=== PATIENT | female | born 1980 | race Caucasian/White ===

== ENCOUNTER 2018-12-11 18:00 | Inpatient (IN) | payer MEDICAID ==
[2018-12-11] MEDS: LACTATED RINGER'S 1,000 ML IV (18:55)
[2018-12-11] MEDS ORDERED: MISOPROSTOL 200 MCG TAB PR (19:00)
[2018-12-11] MEDS ORDERED: LIDOCAINE 1% (MPF) 30 ML INJ INJ (19:00)
[2018-12-11] MEDS ORDERED: CARBOPROST 250 MCG INJ IM (19:00)
[2018-12-11] MEDS ORDERED: OXYCODONE/ASPIRIN (4.88/325) TAB PO (19:00)
[2018-12-11] MEDS ORDERED: OXYTOCIN 30 UNITS/LR 500 ML IV ×2 (19:00)
[2018-12-11] MEDS ORDERED: METHYLERGONOVINE 0.2 MG INJ IM (19:00)
[2018-12-11] MEDS ORDERED: BUTORPHANOL 2 MG INJ IV (19:00)
[2018-12-11 19:20] LABS: ADD MAN DIFF? NO
[2018-12-11 19:23] LABS: WHITE BLOOD COUNT 11.5 10^3/ul (4.8-10.8)
[2018-12-11 19:23] LABS: BASOPHILS % 0.3 % (0.0-2.0); EOSINOPHILS # 0.1 10^3/ul (0.0-0.5); EOSINOPHILS % 0.8 % (0.0-7.0); HEMATOCRIT 35.8 % (37.0-47.0); HEMOGLOBIN 12.2 g/dl (12.0-16.0); LYMPHOCYTES % 17.5 % (15.0-51.0); MEAN CORPUSCULAR HEMOGLOBIN 30.9 pg (29.0-33.0); MEAN CORPUSCULAR HGB CONC 34.1 g/dl (32.0-37.0); MEAN CORPUSCULAR VOLUME 90.6 fl (82.0-101.0); MEAN PLATELET VOLUME 9.3 fl (7.4-10.4); MONOCYTE # 1.2 10^3/ul (0.3-0.9); MONOCYTES % 10.7 % (0.0-11.0); NEUTROPHILS % 69.2 % (39.0-77.0); PLATELET COUNT 211 10^3/UL (140-415); RED BLOOD COUNT 3.95 10^6/ul (4.20-5.40); RED CELL DISTRIBUTION WIDTH 12.9 % (11.5-14.5)
[2018-12-11] MEDS ORDERED: MINERAL OIL LIGHT 10 ML VIAL TOP (19:30)
[2018-12-11 19:43] LABS: INR 0.96; PROTIME 12.9 Sec (11.9-14.9)
[2018-12-11 19:44] LABS: PARTIAL THROMBOPLASTIN TIME 32.8 Sec (23.0-35.0)
[2018-12-11 20:10] LABS: HEPATITIS B SURFACE ANTIGEN NEGATIVE (NEGATIVE)
[2018-12-12] MEDS ORDERED: OXYTOCIN 30 UNITS/LR 500 ML IV ×2 (00:30→13:00)
[2018-12-12] MEDS: LACTATED RINGER'S 1,000 ML IV ×4 (01:38→18:44)
[2018-12-12] MEDS: OXYTOCIN 30 UNITS/LR 500 ML IV ×3 (03:53→14:31)
[2018-12-12] MEDS ORDERED: ROPIVACAINE 0.2% 100 ML (07:52)
[2018-12-12] MEDS ORDERED: FENTAnyl 50 MCG/ML VIAL ×2 (07:54→07:56)
[2018-12-12] MEDS ORDERED: FENTAnyl 2MCG/ML-ROPIV 0.2% 100 ML BAG EPI (08:00)
[2018-12-12] MEDS ORDERED: MINERAL OIL LIGHT 10 ML VIAL TOP (08:00)
[2018-12-12] MEDS ORDERED: ONDANSETRON 4 MG INJ IV (08:00)
[2018-12-12] MEDS ORDERED: DIPHENHYDRAMINE 50 MG INJ IV (08:00)
[2018-12-12] MEDS ORDERED: NALOXONE (0.4 MG/ML) INJ IV (08:00)
[2018-12-12] MEDS ORDERED: ROPIVACAINE 0.2% 100ML BAG EPI (09:00)
[2018-12-12] MEDS: LACTATED RINGER'S 1,000 ML IV* ×2 (12:58→20:58)
[2018-12-12] MEDS ORDERED: MAGNESIUM HYDROXIDE 30ML CUP PO (13:00)
[2018-12-12] MEDS ORDERED: ZOLPIDEM 5 MG TAB PO (13:00)
[2018-12-12] MEDS ORDERED: HYDROCODONE/APAP (5/325) TAB PO (13:00)
[2018-12-12] MEDS ORDERED: ACETAMINOPHEN 325 MG TAB PO (13:00)
[2018-12-12] MEDS ORDERED: MISOPROSTOL 200 MCG TAB PR (13:00)
[2018-12-12] MEDS ORDERED: CARBOPROST 250 MCG INJ IM (13:00)
[2018-12-12] MEDS ORDERED: SENNA/DOCUSATE NA (8.6MG/50MG) TAB PO (13:00)
[2018-12-12] MEDS ORDERED: DIPHENHYDRAMINE 25 MG CAP PO (13:00)
[2018-12-12] MEDS ORDERED: METHYLERGONOVINE 0.2 MG INJ IM (13:00)
[2018-12-12] MEDS: WITCH HAZEL/GLYCERIN PAD PR (14:31)
[2018-12-12] MEDS: LANOLIN HPA 1 PKT TOP (14:31)
[2018-12-12] MEDS: BENZOCAINE 20% 56 ML SPRAY TOP (14:32)
[2018-12-12 15:18] LABS: RAPID PLASMA REAGIN NONREACTIVE (NR)
[2018-12-12] MEDS: IBUPROFEN 800 MG TAB PO (18:31)
[2018-12-13] MEDS: IBUPROFEN 800 MG TAB PO ×4 (00:26→18:00)
[2018-12-13] MEDS: LACTATED RINGER'S 1,000 ML IV (02:44)
[2018-12-13] MEDS: LACTATED RINGER'S 1,000 ML IV* (04:58)
[2018-12-13 09:29] LABS: ADD MAN DIFF? NO
[2018-12-13 09:31] LABS: WHITE BLOOD COUNT 11.8 10^3/ul (4.8-10.8)
[2018-12-13 09:31] LABS: BASOPHILS % 0.3 % (0.0-2.0); EOSINOPHILS # 0.1 10^3/ul (0.0-0.5); EOSINOPHILS % 0.9 % (0.0-7.0); HEMATOCRIT 34.6 % (37.0-47.0); HEMOGLOBIN 11.6 g/dl (12.0-16.0); LYMPHOCYTES # 1.9 10^3/ul (0.8-2.9); LYMPHOCYTES % 15.9 % (15.0-51.0); MEAN CORPUSCULAR HEMOGLOBIN 30.3 pg (29.0-33.0); MEAN CORPUSCULAR HGB CONC 33.5 g/dl (32.0-37.0); MEAN CORPUSCULAR VOLUME 90.3 fl (82.0-101.0); MEAN PLATELET VOLUME 9.3 fl (7.4-10.4); MONOCYTE # 0.9 10^3/ul (0.3-0.9); MONOCYTES % 7.6 % (0.0-11.0); NEUTROPHIL # 8.8 10^3/ul (1.6-7.5); NEUTROPHILS % 74.3 % (39.0-77.0); PLATELET COUNT 192 10^3/UL (140-415); RED BLOOD COUNT 3.83 10^6/ul (4.20-5.40); RED CELL DISTRIBUTION WIDTH 12.9 % (11.5-14.5)
[2018-12-13] MEDS: IBUPROFEN 600 MG TAB PO (23:47)
[2018-12-14] MEDS: IBUPROFEN 800 MG TAB PO ×3 (05:39→12:35)
[2018-12-14] MEDS: BENZOCAINE 20% 56 ML SPRAY TOP (07:47)
[2018-12-14] MEDS: WITCH HAZEL/GLYCERIN PAD PR (07:47)
[2018-12-14] MEDS: LANOLIN HPA 1 PKT TOP (07:47)
[2018-12-14] MEDS: MEASLES,MUMPS,RUBELLA VACCINE INJ SC* (09:37)
[2018-12-14] MEDS: VARICELLA VACCINE LIVE/PF 1,350 UNIT/0.5 ML ML SC* (09:37)
[2018-12-14] MEDS: DIPHTH/TET/ACEL PERTUSS (ADULT) 0.5 ML VIAL IM* (09:48)
== END 2018-12-14 13:45 | disposition home or self-care (01) | DRG 807 ==
LOC: PP1 12-12 12:24 → L-D 18:00
PROVIDERS: Obstetrics & Gynecology
PROC: 10E0XZZ Delivery of Products of Conception, External Approach (ICD-10-PCS; principal; 2018-12-12)
DX: O80 Encounter for full-term uncomplicated delivery (principal); Z37.0 Single live birth; Z3A.39 39 weeks gestation of pregnancy
CPT/HCPCS: 62319; 76815; 85025; 85610; 85730; 86592; 86850; 86900; 86901; 87340; 90715; 90716